=== PATIENT | female | born 1975 | race Caucasian/White ===

== ENCOUNTER 2019-11-30 14:46 | Emergency (ER) | payer OTHER ==
[~2019-11-30] VITALS: Ht 162.6 cm; Wt 50.2 kg
[2019-11-30 14:48] VITALS: BP 118/77
== END 2019-11-30 15:45 | disposition home or self-care (01) ==
LOC: MERGE 14:46 → ED 15:30
DX: M54.6 Pain in thoracic spine (principal); Z76.0 Encounter for issue of repeat prescription; G89.29 Other chronic pain
CPT/HCPCS: 99283